=== PATIENT | female | born 1975 | race Caucasian/White ===

== ENCOUNTER 2024-09-30 10:02 | Emergency (ER) | payer MEDICAID, SELFPAY ==
[2024-09-30 10:03] VITALS: BMI 28.2
[2024-09-30 10:05] VITALS: BP 153/103; PULSE 99; RESP 18; TEMP 36.4; O2SAT 99
--- NOTE | 2024-09-30 10:40 | PC.NURSE ---
pt came to ed for SI. pt states they have attempted to end life multiple times. pt has been having si since 14. on suicide precautions. 1:1 sitter at bedside
--- NOTE | 2024-09-30 10:41 | PC.NURSE ---
called lab to get blood drawn for pt
--- NOTE | 2024-09-30 10:44 | PC.NURSE ---
asked pt for urine. pt states that they dont need to go restroom.
--- NOTE | 2024-09-30 11:20 | EDNOTE_ITS ---
ED Psych RME/HPI General Chief Complaint: Suicidal Stated Complaint: SI Time Seen by Provider: 09/30/24 10:34 Arrival date/time: 09/30/24 10:02 RME / HPI RME / HPI Narrative: 49 year old female with history of chronic back pain presents to the ED for evaluation of suicidal ideation today. Patient reports I don't want to live anymore and does not elaborate more beyond that. No other complaints were reported. Related Data Allergies Allergy/AdvReac Type Severity Reaction Status Date / Time No Known Allergies Allergy Verified 09/30/24 10:05 Review of Systems Review of Systems Narrative Review of Systems: Gen: No fever, no chills EYES: No discharge, no pain HEENT: No ear pain, no congestion, no sore throat PULM: no shortness of breath, no cough CV: No chest pain, no palpitations GI: No nausea, no vomiting, no diarrhea, no pain, no constipation : No frequency, no urgency,? no dysuria Psyc: No hallucinations, +suicidal ideation Neuro: No weakness, no headache Past Medical History Past Medical History CARDIAC: Negative Congestive Heart Failure RESPIRATORY: Negative Chronic Obstructive Pulmonary Disease (COPD) GENITOURINARY: Negative Renal Disease ENDOCRINE: Negative Diabetes Mellitus Type 1 or Diabetes Mellitus Type 2 PSYCHO/SOCIAL: Positive Recreational Drug Use, Bipolar Disorder and Anxiety Social History SMOKING STATUS: Never smoker ED Exam Narrative Physical exam: GENERAL APPEARANCE:? alert and oriented x 4, well-developed, well-nourished, no acute distress HEENT: normocephalic, atraumatic NECK: supple LUNGS: no respiratory distress, normal effort HEART: good peripheral perfusion ABDOMEN: non distended EXTREMITIES:? atraumatic NEUROLOGIC: awake; alert and oriented x4; cranial nerves II-XII grossly intact PSYCHIATRIC:? appropriate mood and affect SKIN: warm, dry, normal color; no rashes Course Course Course Narrative: 1100: Patient is medically cleared for mental health evaluation. [facility]. Quality Measures none Orders Category Date Time Status Alcohol, Urine Stat Lab 09/30/24 12:50 Completed CBC Stat Lab 09/30/24 11:17 Completed CBC Stat Lab 09/30/24 16:29 Completed CMP [Comprehensive Metabolic Panel] Stat Lab 09/30/24 11:17 Completed Drug Screen,Urine Stat Lab 09/30/24 12:50 Completed Vital Signs Vital signs: Vital Signs Temperature 97.5 F 09/30/24 10:05 Pulse Rate 99 09/30/24 10:05 Respiratory Rate 18 09/30/24 10:05 Blood Pressure 153/103 H 09/30/24 10:05 Pulse Oximetry (%) 99 09/30/24 10:05 Oxygen Delivery Method Room Air 09/30/24 10:05 Pulse ox is 99% on room air which is adequate. Psych MDM Narrative MDM Narrative:: Katerin Mendoza am scribing for and in the presence of Dr. Koenig. Patient data External records reviewed:: [facility] previous records (Per EMR, no previous ED visits for review ) Clinical information provided by:: patient Social determinants that could affect healthcare access:: mental health Patient has the following chronic illnesses:: Chronic back pain How is presenting disease/condition affected by chronic disease/condition?: uneffected by Evaluation data The following diagnostics were reviewed and interpreted by me:: lab results Lab and/or radiology exams considered but not ordered:: None Interpretation Summary: As noted above Medications / Prescriptions Medications or Prescriptions considered but not ordered:: None Medication administrations:: None Consultations Consultation(s) initiated? (list below): No Diagnosis Psych Differential Diagnosis: acute psychosis, suicidal ideation, bipolar disorder, depression, drug-induced psychotic disorder and acute anxiety Most likely diagnosis given after review of the tests above:: Suicidal ideation Admission Indicated Admission indicated?: not indicated Admission Request Was there a request for admission?: No Disposition Plan Disposition Plan: Transfer ([facility] ) Discharge Plan Plan Patient Disposition: [facility] Disposition Comment: [facility] Patient condition on transfer: Stable Prescriptions/Referrals Referrals: No Primary/Family,Physician [Primary Care Provider] - In 1 week Problem List Clinical Impression: Suicidal ideation Patient/Caregiver Discharge Instructions Print Language: Mauritian Stand Alone Forms: [facility] Award Info., Patient Portal Info Letter
[2024-09-30 11:34] LABS: Basophils # (Auto) 0.1 Thou/mm3 (0.0-0.2); Basophils % (Auto) 1 % (0-2.5); Eosinophils # (Auto) 0.2 Thou/mm3 (0.0-0.5); Eosinophils % (Auto) 2 % (0-10); Hemoglobin 10.6 g/dL (12.0-16.0); Immature Granulocytes % (Auto) 0 % (0-0); Immature Granulocytes Auto 0.05 Thou/mm3 (0.00-0.00); Lymphocytes # (Auto) 1.9 Thou/mm3 (1.0-4.8); Lymphocytes % (Auto) 15 % (10-50); Mean Corpuscular HGB Conc 31.2 g/dl (31.0-37.0); Mean Corpuscular Hemoglobin 23.7 pg (25.0-35.0); Mean Corpuscular Volume 76 fL (80-100); Monocytes # (Auto) 0.8 Thou/mm3 (0.0-0.8); Monocytes % (Auto) 7 % (0-12); Neutrophils # (Auto) 9.6 Thou/mm3 (1.8-7.7); Neutrophils % (Auto) 76 % (37-80); Nucleated Red Blood Cell % 0 /100 WBC (0); Platelet Count 608 Thou/mm3 (140-440); RDW Standard Deviation 42.2 fL (36.4-46.3); Red Blood Count 4.47 Miln/mm3 (4.00-5.20); White Blood Count 12.6 Thou/mm3 (3.6-11.0)
[2024-09-30 11:59] LABS: Alanine Aminotransferase 9 U/L (10-49); Albumin, Serum 4.2 gm/dL (3.5-5.0); Albumin/Globulin Ratio 2.2 (1.2-2.2); Alkaline Phosphatase 61 U/L (46-116); Anion Gap 5 (7-16); Aspartate Amino Transferase 11 U/L (0-34); BUN/Creatinine Ratio 16 Ratio (12-20); Bilirubin,Total 0.2 mg/dL (0.3-1.2); Blood Urea Nitrogen 13 mg/dL (9-23); Calcium 9.3 mg/dL (8.3-10.6); Calcium (Corrected) 9.3 mg/dL (8.5-10.1); Carbon Dioxide 26.5 mMol/L (20.0-31.0); Chloride 109 mMol/L (98-107); Creatinine (Component) 0.8 mg/dL (0.6-1.3); Estimated Creatinine Clearance 90.4 mL/min (>60); Globulin 1.9 gm/dL (2.3-3.5); Glucose 107 mg/dL (74-106); Osmolality,Calculated 279 (275-295); Potassium 4.3 mMol/L (3.4-5.1); Sodium 140 mMol/L (136-145); Total Protein 6.1 gm/dL (5.7-8.2); eGFR > 60 See Note
[2024-09-30 12:06] VITALS: BP 121/72; PULSE 67; RESP 18; TEMP 36.4; O2SAT 98
--- NOTE | 2024-09-30 12:54 | PC.CC ---
Patient is a 49 year-old female who presents to the hospital for mental health evaluation due to suicidal ideations. ASWAnnalee made [id number] contact with patient. ASW introduced self, role, and reason for visit.?Patient appeared alert and oriented to self, location, and situation.?ASW disclosed limits of confidentiality as well. Patient appeared alert and oriented to self, place, and situation. Patient?s mood appeared to be depressed as patient was tearful with a flat affect and disinhibited; she was cooperative; made appropriate eye contact; patient had good insight and judgement. Patient?s thought process was linear and organized. No signs of delusions, paranoid or V/h. Patient reports she has been staying at [facility] since Wednesday for and has been having suicidal ideations daily. ASW explored if something is triggering for her to have suicidal ideations. Patient stated, ?I am overwhelmed with life and don?t want to live anymore.? Patient has no family and reports to feeling lonely. Patient reports prior to checking into [facility] she was homeless in the [facility]. At the time of encounter the patient continues to express suicidal ideations with no plan. Patient denied homicidal ideations, visual and auditory hallucinations. Patient reports she has had multiple suicide attempts with the last one being in July 2024 when she slit her wrist with a knife. Patient showed the scar on her wrist to this psych social worker. Patient reports she has had multiple 5150-hold she the age of [age] years old when she had her first suicide attempt. Patient scored high-risk on the [place] Screening. Per patient, she has mental health diagnosis of Major Depressive Disorder, Generalized Anxiety, and Borderline Personality Disorder. Patient is not compliant with outpatient mental health services with [facility] and is not on psychotropic medications. ? Patient disclosed she stopped using substances a couple of days ago. Patient provided consent to contact [facility]. ASW made telephone contact with [facility] to confirm get collateral information and confirm the above information the patient provided. [facility] staff report that patient is not court-ordered to be at [facility] and was referred in [facility]. Upon clinical consultation with Yesica COSME the patient will be placed on a 5150-Hold for Danger to Self. Patient is unable to provide a viable safety plan. ASW provided advisement of 5150-hold to the patient and she was receptive to information. ASW provided update to Dr. Koenig, entry level account representative Kathy, and bedside GAYLE Baez.
[2024-09-30 13:10] LABS: Alcohol, Urine Negative (Negative); Amphetamine/Methamp Scrn,U Negative (Negative); Barbiturate Screen,Urine Negative (Negative); Benzodiazepines Screen,Urine Negative (Negative); Benzoylecgonine Screen, Ur Negative (Negative); Fentanyl Screen,Urine Negative (Negative); Opiate Screen,Urine Negative (Negative); THC Screen,Urine Negative (Negative)
--- NOTE | 2024-09-30 13:15 | PC.NURSE ---
per social work, pt on a hold
[2024-09-30 15:03] VITALS: BP 106/68; PULSE 75; RESP 18; TEMP 36.6; O2SAT 97
--- NOTE | 2024-09-30 15:47 | PC.CC ---
Maury Whatley made contact with ASW to inform her that patient's PLT Count is 600 and cannot accept patient. ASW provided this information to provider Dr. Koenig who reports it is not high.
[2024-09-30 16:06] VITALS: BP 108/70; PULSE 76; RESP 18; TEMP 36.4; O2SAT 98
--- NOTE | 2024-09-30 16:24 | PC.CC ---
[facility] called and is requesting short Márquez from [facility]. ASW made contact with [facility] to request short Márquez. Staff will be sending short M[facility]quez to [facility]. ASW to make contact with Janine to confirm they received Short Márquez to obtain accepting information and set up transportation.
[2024-09-30 16:38] LABS: Basophils # (Auto) 0.1 Thou/mm3 (0.0-0.2); Basophils % (Auto) 1 % (0-2.5); Eosinophils # (Auto) 0.3 Thou/mm3 (0.0-0.5); Eosinophils % (Auto) 2 % (0-10); Hemoglobin 11.3 g/dL (12.0-16.0); Immature Granulocytes % (Auto) 0 % (0-0); Immature Granulocytes Auto 0.04 Thou/mm3 (0.00-0.00); Lymphocytes # (Auto) 2.6 Thou/mm3 (1.0-4.8); Lymphocytes % (Auto) 21 % (10-50); Mean Corpuscular HGB Conc 30.5 g/dl (31.0-37.0); Mean Corpuscular Hemoglobin 23.5 pg (25.0-35.0); Mean Corpuscular Volume 77 fL (80-100); Monocytes % (Auto) 8 % (0-12); Neutrophils # (Auto) 8.5 Thou/mm3 (1.8-7.7); Neutrophils % (Auto) 68 % (37-80); Nucleated Red Blood Cell % 0 /100 WBC (0); Platelet Count 530 Thou/mm3 (140-440); RDW Standard Deviation 42.2 fL (36.4-46.3); Red Blood Count 4.81 Miln/mm3 (4.00-5.20); White Blood Count 12.5 Thou/mm3 (3.6-11.0)
--- NOTE | 2024-09-30 16:42 | PC.CC ---
Dr. Cárdenas with [facility] reports she sent [facility] M[facility]quez to [facility] for placement of patient.
--- NOTE | 2024-09-30 16:44 | PC.CC ---
Patient was accepted to [facility], Dr. Lawson, [place] [facility]. Patient was provided with accepting information and was receptive. Dr. Koenig, inside sales account executive Jennifer, and bedside GAYLE Clarke were provided with updated d/c plan to [facility]. ASW to arrange transportation.
[2024-09-30 17:55] VITALS: BP 143/85; PULSE 71; RESP 18; TEMP 36.7; O2SAT 99
== END 2024-09-30 21:19 ==
PROVIDERS: Emergency Provider Emergency Medicine
DX: R45.851 Suicidal ideations (principal); Z75.1 Person awaiting admission to adequate facility elsewhere
CPT/HCPCS: 36415; 80053; 80307; 80320; 85025; 90839; 96127; 99285; G0480